=== PATIENT | male | born 1980 | race American Indian/Alaskan Native ===

== ENCOUNTER 2018-09-13 19:28 | Emergency (ER) | payer OTHER ==
[2018-09-13] MEDS ORDERED: CEFTRIAXONE SODIUM 1 GM ONE (20:01)
[2018-09-13] MEDS ORDERED: DEXAMETHASONE SOD PHOSPHATE 10MG/ML 1ML VIAL ONE (20:01)
== END 2018-09-13 21:08 | disposition home or self-care (01) ==
LOC: EDH 19:28
DX: J10.1 Influenza due to other identified influenza virus with other respiratory manifestations (principal)
CPT/HCPCS: 87804 ×2; 96372 ×2; 99284; J0696; J1100